=== PATIENT | male | born 1980 | race Caucasian/White ===

== ENCOUNTER 2016-09-11 18:28 | Observation (INO) | payer OTHER ==
--- NOTE | ~2016-09-11 | EKG ---
PATIENT: SEUN MATA UNIT #: [id number] Ventricular Rate: 69 BPM Atrial Rate: 69 BPM P-R Interval: 184 ms QRS Duration: 96 ms Q-T Interval: 426 ms QTC Calculation(Bezet): 456 ms P [place]: 40 degrees Calculated R [place]: -74 degrees Calculated T [place]: 23 degrees Diagnosis Line: Normal sinus rhythm Diagnosis Line: Left axis deviation Diagnosis Line: Abnormal ECG Diagnosis Line: When compared with ECG of 11-APR-2016 20:31, Diagnosis Line: Vent. rate has decreased BY 34 BPM Diagnosis Line: T wave amplitude has decreased in Lateral leads Diagnosis Line: Confirmed by GEE AMOS MD ([id number]) on Diagnosis Line: 09/13/2016 10:23:53 PM INTERPRETING MD: JAY
--- NOTE | ~2016-09-11 | EKG ---
PATIENT: SEUN MATA UNIT #: [id number] Ventricular Rate: 70 BPM Atrial Rate: 70 BPM P-R Interval: 184 ms QRS Duration: 100 ms Q-T Interval: 426 ms QTC Calculation(Bezet): 460 ms P [place]: 66 degrees Calculated R [place]: -62 degrees Calculated T [place]: 29 degrees Diagnosis Line: Normal sinus rhythm Diagnosis Line: Left axis deviation Diagnosis Line: Prolonged QT Diagnosis Line: Abnormal ECG Diagnosis Line: When compared with ECG of 11-SEP-2016 18:45, Diagnosis Line: (unconfirmed) Diagnosis Line: No significant change was found Diagnosis Line: Confirmed by GEE AMOS MD ([id number]) on Diagnosis Line: 09/13/2016 10:37:16 PM INTERPRETING MD: JAY
--- NOTE | ~2016-09-11 | BMI ---
[facility] Nutrition Therapy DATE: 09/12/16 Patient: SEUN LOPEZCKER Physician: LEYLA Address: [address] [place] [address] Room/Bed: [address] [place] [address], Zip: [place] [address] Admit Date: 09/11/16 Date of : [birth year] Height: 5 11 Weight: 428 194.2 HIGH BMI NOTE: DX: 36 Y.O. MALE ADMITTED FOR CHEST PAIN, SYNCOPE EPISODE ANTHROPOMETRICS: 5'11", WT: 350# (159 KG), BMI: 48.8 DIET: CC+HH INTERVENTION: 1. CC+HH DIET RECOMMENDATIONS: 1. CONTINUE CURRENT DIET ORDER ABOVE TO PROMOTE GRADUAL WEIGHT LOSS TOWARDS HEALTHY BMI (19.0-25.0) OR +/-10%IBW RD WILL F/U PER PROTOCOL Respectfully, PAPO VOGEL MS, RD, LD Food and Nutritional Services [facility] cc: client file
--- NOTE | ~2016-09-11 | HP ---
Unit #: [id number] #: [id number] Patient: SEUN MATA [id number] [address] [place], [place] [address] [id number] I MR#: [id number] NAME: SEUN MATA ROOM: 553 Age: 36 Sex: M Admission Date: 09/11/2016 : 1980 Attending Physician: Niko Tabor M.D. Primary Care Physician: Angela Burgos M.D. HISTORY AND PHYSICAL CHIEF COMPLAINT Syncopal episode, chest pain. HISTORY OF PRESENT ILLNESS This is a 36-year-old gentleman, history of diabetes, hypertension, chronic pain syndrome, osteoarthritis, tobacco abuse, morbid obesity. He presented to the emergency room for evaluation of the syncopal episode and chest pain. He said that he was at work at [employer]. He said that he had been having already bad day today. He was working at [employer] and he said that all of a sudden he passed out and since then he had been complaining of some exertional chest pain, also he described chest pain as sharp. He said it radiated to back and also to the neck being also complaining of nausea but no vomiting, no fever, no headache, no cough. PAST MEDICAL HISTORY 1. History of hypertension. 2. Diabetes. 3. Chronic pain syndrome. 4. Osteoarthritis. 5. Morbid obesity. 6. History of nicotine abuse. PAST SURGICAL HISTORY History of scrotal incision and drainage for abscess. ALLERGIES No known drug allergies. HOME MEDICATIONS He does not know the doses, will call the pharmacy and confirm the medications. SOCIAL HISTORY He works at [employer] at this time. He lives with family. He smokes one and one half packs of cigarettes daily. He drinks alcohol, beers. He denies illicit drug use. FAMILY HISTORY Mother's history unknown, father from pancreatic cancer. REVIEW OF SYSTEMS CONSTITUTIONAL: No fever. No chills. CARDIOVASCULAR: Reports chest pain described lower chest stabbing pain radiating to neck and back. Unit #: [id number] #: [id number] Patient: SEUN MATA PULMONARY: No cough. No wheezing. GI: Reports nausea but no vomiting. MUSCULOSKELETAL: Chronic pain. NEURO: Had a syncopal episode today. PHYSICAL EXAMINATION GENERAL: Young man lying in the bed comfortably, not in any distress. She is alert, awake, and oriented x3, comfortable, not in any distress. VITAL SIGNS: Current vitals are the following, temperature 97.5, heart rate 68, respiratory rate 18, and blood pressure 171/100, oxygen is 96% on room air. HEENT EXAMINATION: Pupils equal reactive to light and accommodation. Head: Normocephalic and atraumatic. NECK: Supple. No jugular venous distention. HEART: S1 and S2, regular rate and rhythm. ABDOMEN: Soft, nontender, and nondistended. Bowel sounds are positive. EXTREMITIES: Inspection normal. No cyanosis, no clubbing, and no edema. NEUROLOGIC: No focal neurologic deficit. DIAGNOSTIC STUDIES LABORATORY: Laboratory workup is the following, his troponin is less than 0.05, sodium 140, potassium 4.4, glucose 186, BUN 15, creatinine 0.8, INR 0.9, white count 10, hemoglobin 14, hematocrit 45, platelets 200. IMAGING: Chest x-ray negative. CARDIOVASCULAR: EKG shows normal sinus rhythm. ASSESSMENT/PLAN 1. Chest pain, will admit the patient to rule out acute coronary syndrome, will schedule nuclear stress test. 2. Syncopal episode, will do workup, cardiology to evaluate. 3. History of hypertension. 4. Diabetes, place on sliding scale. 5. Chronic pain syndrome. 6. Osteoarthritis. 7. Tobacco abuse. 8. Morbid obesity. 9. DVT prophylaxis, will place the patient on Lovenox. Dictated by Florecita Schwartz TD: 09/12/2016 12:25 JOB #: [id number] Unit #: [id number] #: [id number] Patient: SEUN MATA HISTORY AND PHYSICAL X X HISTORY AND PHYSICAL
--- NOTE | ~2016-09-11 | CR72 ---
[facility] A Service of [facility] & [facility] RADIOLOGY TEXT RESULTS PATIENT: SEUN MATA LOCATION: [place] [address] : [birth year] UNIT #: [id number] AGE: [address]: Niko Tabor MD SEX: M ORDER DR: [id number] [facility] [address] [facility]. [place], [place] [address] [id number] I MR#: [id number] Acc #: [id number] NAME: SEUN MATA : 1980 SEX: M STUDY DATE/TIME: 09/11/2016 18:37 UNIT: CED ROOM: 67057 STUDY DESCRIPTION: CR Chest Single View Portable Attending Physician: Niko Tabor M.D. Ordering Physician: Jorge Mitchell M.D. Primary Care Physician: Angela Burgos M.D. MEDICAL IMAGING REPORT This report is preliminary unless electronic signature is present EXAM Portable chest HISTORY Chest pain. Congestion and syncope. Chronic and symptoms for 2 years. FINDINGS Mild cardiac enlargement and pulmonary vascularity is normal. No airspace infiltrates or effusions. IMPRESSION No active disease. Mild cardiac enlargement. Dictated by... Easton Regan M.D. THIS IS AN ELECTRONICALLY VERIFIED REPORT Easton Regan M.D. at 09/12/2016 3:35 PM DFL/pcl TD: 09/11/2016 23:56 JOB #: [id number] MEDICAL IMAGING REPORT COPY
--- NOTE | ~2016-09-11 | DS ---
Unit #: [id number] #: [id number] Patient: SEUN MATA [id number] [address] [place], [place] [address] [id number] I MR#: [id number] NAME: SEUN MATA. ROOM: 553 Age: 36 Sex: M Admission Date: 09/11/2016 : 1980 Discharge Date: 09/12/2016 Attending Physician: Niko Tabor M.D. Primary Care Physician: Angela Burgos M.D. DISCHARGE SUMMARY FINAL REPORT SHORT STAY SUMMARY HOSPITAL COURSE This 36-year-old male was admitted to the hospital. Patient was seen by Dr. Mora in cardiac consultation. Patient did not have any recurrence of syncope. Dr. Mora thought that patient's symptoms are suggestive of vasovagal episodes and he suggested a tilt table test on outpatient basis. Patient had a coronary angiogram done in 2014, which was normal with an ejection fraction of 50%. Dr. Mora also recommended that there is no indication of carotid Doppler and 2D echo so those tests were not done. Dr. Mora stated that he would follow up with him in the office for further workup if needed. Today, patient is comfortable. He is not in any acute distress. He wants to go home. PHYSICAL EXAMINATION VITAL SIGNS: Reveal temperature of 97.6, pulse is 64 per minute, respiratory rate is 14 per minute, and blood pressure is 126/65. HEENT: Revealed no conjunctival congestion. Sclerae are nonicteric. NECK: Supple. Trachea is central. RESPIRATORY: Revealed breath sounds equal bilaterally. There are no wheezes or crackles. HEART: Regular rate and rhythm S1 and S2. ABDOMEN: Soft and nontender. Bowel sounds are present in all four quadrants. He is morbidly obese. SKIN: Warm and dry. EXTREMITIES: Trace pedal edema. DIAGNOSTIC STUDIES LABORATORY: Patient's creatinine is 0.8, sodium 140, and potassium is 4.4. Troponin was negative. WBCs 10.9, hemoglobin was 14.8, and platelet count is 200. IMAGING: Chest x-ray did not reveal any active disease. RECOMMENDATIONS ON DISCHARGE Condition is stable. Activities as tolerated. MEDICATIONS 1. Glipizide 10 mg p.o. b.i.d. 2. Robaxin 500 mg p.o. daily p.r.n. Unit #: [id number] #: [id number] Patient: SEUN MATA 3. Lantus 14 units subcu. b.i.d. 4. Lyrica 200 mg p.o. b.i.d. p.r.n. 5. Clonidine 0.1 mg b.i.d. 6. Victoza. 7. Atenolol 25 mg p.o. daily. FOLLOWUP 1. Patient is advised to follow up with primary care physician in one week or earlier if needed. 2. Patient is advised to follow up with Dr. Mora, as recommended, in 6-[address] Mora has recommended to schedule a tilt table test on outpatient basis. Patient was advised to call primary care physician or go to ER if his condition changes. The plan was discussed in detail with patient who showed complete understanding. Dictated by... Florecita Rossi/cameron TD: 09/12/2016 13:58 JOB #: [id number] CC: Mayank/aline Please Delete DISCHARGE SUMMARY X Hernan Ziegler MD X DISCHARGE SUMMARY
--- NOTE | ~2016-09-11 | CO ---
Unit #: [id number] #: [id number] Patient: SEUN MATA [id number] [address] [place], [place] [address] [id number] I MR#: [id number] NAME: SEUN MATA ROOM: 55 Age: 36 Sex: M Admission Date: 09/11/2016 : 1980 Attending Physician: Niko Tabor M.D. Primary Care Physician: Angela Burgos M.D. CONSULTATION REPORT REASON FOR CONSULTATION Syncope and chest pain. HISTORY OF PRESENT ILLNESS This is a 36-year-old white male, who works [employer]. Yesterday, while working he states he had a stressful day. He became hot, diaphoretic, and had pain that he describes as sharp in his lower retrosternal and epigastric area. He states he then passed out. He awakened fully conscious without any symptoms except for low back pain, neck pain, and continuation of his chest pain. His chest pain has been ongoing without relief. He was brought to the emergency room for evaluation, where he was given sublingual nitroglycerin. He was hypertensive with blood pressure of 171/100 mmHg. He has risk factors for ischemic heart disease includes hypertension, diabetes, and nicotine abuse. He had previous cardiac catheterization in 12/2015, where he was found to have angiographically normal coronaries. His troponin has been negative with no acute EKG changes on EKG. PAST MEDICAL HISTORY 1. Cardiac catheterization on 12/28/[address] Mora at [facility] that reveals angiographically normal coronaries, with an ejection fraction of 50%. 2. Hypertension. 3. Diabetes mellitus type 2. 4. Morbid obesity. 5. Chronic pain syndrome. 6. Osteoarthritis. 7. Active smoker. PAST SURGICAL HISTORY I and D of the scrotum. SOCIAL HISTORY The patient works at [employer]. He smokes a half a pack of cigarettes daily since age 9. He denies illicit drug or alcohol use. FAMILY HISTORY Negative for coronary artery disease. ALLERGIES No known drug allergies. HOME MEDICATIONS Glucotrol 10 mg b.i.d., Robaxin 500 mg daily, Lantus 14 units subcu Unit #: [id number] #: [id number] Patient: SEUN MATA b.i.d., Lyrica 200 mg b.i.d., clonidine daily. REVIEW OF SYSTEMS CONSTITUTIONAL: Negative for fever or chills. Reports no weight gain or weight loss. No fatigue. No weakness. HEENT: No headache. No hearing or vision changes, difficulty with swallowing. No dizziness. CARDIOVASCULAR: Has chest pain as described in the HPI. Denies palpitations. No paroxysmal nocturnal dyspnea or orthopnea. Reports syncope with loss of consciousness. RESPIRATORY: Positive for dyspnea. No cough or hemoptysis. GASTROINTESTINAL: No abdominal pain, but reports nausea. No vomiting or diarrhea. EXTREMITIES: Negative for lower extremity edema. PHYSICAL EXAMINATION VITAL SIGNS: Blood pressure 126/65, heart rate 64, temperature 97.6. BMI of 59. GENERAL: This is an obese 36-year-old young white male, who is in no acute distress. NEUROLOGIC: He is awake, alert, and oriented without focal weaknesses. NECK: Trachea is midline. No thyromegaly or lymphadenopathy. No jugular venous distention. HEART: S1 and S2. Heart sounds are normal. No murmurs. No rubs or clicks. Regular rate and rhythm. LUNGS: Diminished breath sounds without rales, rhonchi, or wheezes. ABDOMEN: Soft and nontender with bowel sounds are present. EXTREMITIES: Without leg edema. SKIN: Warm and dry. DIAGNOSTIC STUDIES LABORATORY RESULTS: Glucose 186, BUN 15, creatinine 0.8. Sodium 140, potassium 4.4. CK total 102, MB 2.5, MB index 2.5, troponin is less than 0.05 x2 and less than 0.03 x2. Cholesterol 181, triglycerides 138, LDL 107, HDL 46. White count 10.9, hemoglobin 14.8, hematocrit 45.6, platelet count 200. IMAGING STUDIES: Chest x-ray, no active disease with mild cardiac enlargement. CARDIOVASCULAR STUDIES: Electrocardiogram, normal sinus rhythm with a rate of 70 beats per minute with left anterior fascicular block. Poor R-wave progression and left axis deviation. IMPRESSION 1. Chest pain, musculoskeletal in origin. 2. Syncope, questionable vasovagal. 3. Hypertension. 4. Hyperlipidemia. 5. Nicotine abuse. 6. Morbid obesity. 7. Normal coronaries per cardiac catheterization in 12/2014. PLAN 1. Cardiology was consulted for chest pain and syncope. The patient's chest pain appears to be musculoskeletal in origin. 2. Unable to do stress test, because of body habitus. 3. We will evaluate possible vagal syncope with a tilt-table test as an Unit #: [id number] #: [id number] Patient: SEUN MATA outpatient. 4. I have asked the patient to discontinue nicotine abuse. 5. Follow up with Dr. Mora in 6 to 8 weeks. Thank you for allowing us to assist in this patient's care. Dictated by... Sahara ArteagaPGuadalupe for Florecita Montalvo/yoana TD: 09/12/2016 12:33 JOB #: [id number] CONSULTATION REPORT X Ajay Rivera APRN X CONSULTATION REPORT
--- NOTE | ~2016-09-11 | EKG ---
PATIENT: SEUN MATA UNIT #: [id number] Ventricular Rate: 59 BPM Atrial Rate: 59 BPM P-R Interval: 182 ms QRS Duration: 100 ms Q-T Interval: 428 ms QTC Calculation(Bezet): 423 ms P [place]: 48 degrees Calculated R [place]: -65 degrees Calculated T [place]: 29 degrees Diagnosis Line: Sinus bradycardia Diagnosis Line: Left axis deviation Diagnosis Line: Nonspecific T wave abnormality Diagnosis Line: Abnormal ECG Diagnosis Line: When compared with ECG of 12-SEP-2016 01:49, Diagnosis Line: (unconfirmed) Diagnosis Line: No significant change was found Diagnosis Line: Confirmed by GEE AMOS MD ([id number]) on Diagnosis Line: 09/13/2016 10:39:55 PM INTERPRETING MD: JAY
[~2016-09-11 18:28] MED LIST: ASPIRIN PO; AUGMENTIN PO; BACTRIM DS TABL1 TA2 PO; BACTROBAN22 GM TP; DAKIN S TOP; FLOMAX0.4 M1 PO; GLUCOTROL10 MG PO; IBUPROFEN800 MG PO; INVOKANA100 MG PO; LIPITOR20 MG PO; LOPRESSOR PO; LORTAB 5/500 TA1 TA1 PO; LORTAB 7.5-5001 TAB PO; LOTRIMIN30 GM TOP; METFORMIN PO; NORCO 5/325 TAB1 TAB PO; PERCOCET5/325 PO; PHENERGAN PO; PHENERGAN25 M1 PO; PRINIVIL20 M1 PO; TYLENOL325 M1 PO; [UNRECOGNIZED DRUG - OTHER] TOP
[2016-09-11 18:33] LABS: BASOPHIL% 0.4 % (0-2.5); DIFF IND NO; EOSINOPHIL# 0.2 X10e3 (0-0.7); EOSINOPHIL% 1.9 % (0.0-7.0); HEMATOCRIT 45.6 % (38.0-50.0); HEMOGLOBIN 14.8 gm/dL (13.0-16.0); LYMPHOCYTE# 2.4 X10e3 (1.0-3.5); LYMPHOCYTE% 21.7 % (17.0-45.0); MEAN CELL VOLUME 84.7 FL (83-96); MEAN CORPUSCULAR HEMOGLOBIN 27.6 PG (28-34); MEAN CORPUSCULAR HGB CONC 32.5 g/dL (30-36); MEAN PLATELET VOLUME 9.6 FL (6.5-11.5); MONOCYTE# 0.9 X10e3 (0-1.0); MONOCYTE% 7.8 % (3.0-12.0); NEUTROPHIL# 7.5 X10e3 (1.5-7.1); NEUTROPHIL% 68.2 % (40-75); PLATELET COUNT 200 X10e3 (140-420); RED BLOOD COUNT 5.39 X10e (3.90-5.60); RED CELL DISTRIBUTION WIDTH 14.5 % (11.0-15.5); WHITE BLOOD COUNT 10.9 X10e3 (4.0-10.5)
[2016-09-11 18:45] LABS: INR 0.9; PARTIAL THROMBOPLASTIN TIME 27.1 SECONDS (23.5-31.3); PROTHROMBIN TIME (PATIENT) 9.9 SECONDS (9.6-11.5)
[2016-09-11 19:14] LABS: BLOOD UREA NITROGEN 15 mg/dL (9-23); BUN/CREATININE RATIO 18.75; CALCIUM SERUM 8.7 mg/dL (8.4-10.2); CARBON DIOXIDE 26 mmol/L (22-31); CHLORIDE 106 mmol/L (100-111); CREATININE SERUM 0.8 mg/dL (0.6-1.4); GLOM FILT RATE Estimated ABOVE60 mL/min (>60); GLUCOSE FASTING 186 mg/dL (70-110); POTASSIUM 4.4 mmol/L (3.5-5.1); SODIUM 140 mmol/L (135-145)
[2016-09-11 20:12] LABS: POC - CKMB 1.8 ng/mL (0.0-7.9); POC - TROPONIN <0.05 ng/mL (<=0.05)
[2016-09-11 20:38] LABS: POC - CKMB 1.4 ng/mL (0.0-7.9); POC - TROPONIN <0.05 ng/mL (<=0.05)
[2016-09-11] MEDS ORDERED: GLUCOTROL10 MG PO (22:46)
[2016-09-11] MEDS ORDERED: ROBAXIN500 MG PO (22:46)
[2016-09-11] MEDS ORDERED: LANTUS100 U/ML SUBQ (22:47)
[2016-09-11] MEDS ORDERED: LYRICA200 MG PO (22:48)
[2016-09-11] MEDS ORDERED: CLONIDINE HCL10 GM PO (22:49)
[2016-09-12 03:56] LABS: %MB 2.5 % (0.0-4.0)
[2016-09-12] MEDS ORDERED: CLONIDINE PO (05:45)
[2016-09-12] MEDS ORDERED: ATENOLOL25 MG PO (07:01)
[2016-09-12] MEDS ORDERED: BUPROPION XL300 M1 PO (07:01)
[2016-09-12] MEDS ORDERED: NABUMETONE500 M1 PO (07:02)
[2016-09-12 09:17] LABS: CHOLESTEROL 181 mg/dL (0-200); HDL CHOLESTEROL 46 mg/dL (29-75); LDL CHOLESTEROL 107 mg/dL (-130); LDL/HDL RATIO 2 RATIO (0-4); TRIGLYCERIDES 138 mg/dL (10-160)
[2016-09-12 09:40] LABS: %MB 2.5 % (0.0-4.0); MB 2.5 ng/ml
== END 2016-09-12 12:54 | disposition home or self-care (01) ==
LOC: CED 18:28 → CEDOF 22:50 → C5B 09-12 01:12
PROVIDERS: Emergency Medicine; Internal Medicine
DX: R07.89 Other chest pain (principal); R55 Syncope and collapse; I51.7 Cardiomegaly; I10 Essential (primary) hypertension; E78.5 Hyperlipidemia, unspecified; E11.9 Type 2 diabetes mellitus without complications; Z79.4 Long term (current) use of insulin; G89.4 Chronic pain syndrome; M19.90 Unspecified osteoarthritis, unspecified site; E66.01 Morbid (severe) obesity due to excess calories; Z68.38 Body mass index [BMI] 38.0-38.9, adult; F17.210 Nicotine dependence, cigarettes, uncomplicated; Z79.899 Other long term (current) drug therapy; Z98.890 Other specified postprocedural states
CPT/HCPCS: 36415; 71010; 80048; 80061; 82550; 82553; 82947; 84484; 85025; 85610; 85730; 93005; 96372; 96374; 96375; 96376; 99285; G0378; J1650; J1815; J2270; J2405

== ENCOUNTER → 2016-09-17 | Outpatient (CLI) | payer OTHER ==
[~2016-09-17] MED LIST changes: +ATENOLOL25 MG PO; +BUPROPION XL300 M1 PO; +CLONIDINE HCL10 GM PO; +CLONIDINE PO; +LANTUS100 U/ML SUBQ; +LYRICA200 MG PO; +NABUMETONE500 M1 PO; +ROBAXIN500 MG PO
--- NOTE | ~2016-09-17 | TT ---
Unit #: [id number] #: [id number] Patient: SEUN MATA [id number] [address] [address] [id number] MR#: [id number] NAME: SEUN MATA. : 1980 SEX: M STUDY DATE/TIME: UNIT: [facility] ROOM: STUDY DESCRIPTION: Tilt table test Attending Physician: Danyel Mora M.D. Referring Physician: Danyel Mora M.D. Primary Care Physician: Angela Burgos M.D. CARDIOLOGY REPORT PROCEDURES PERFORMED Tilt table test. PROCEDURES Baseline supine blood pressure is 164/77 with a pulse rate of 72 per minute and respiratory rate of 18. Blood pressure with 70 degree head-up tilt was 170/82 with a heart rate of 70 per minute. At 5 minutes of head-up tilt, the patient complained of tingling in his feet and blurred vision, but the blood pressure was 198/104 mmHg and a heart rate of 66 per minute. Blood pressure remained elevated over the next 20 minutes rising to 202/103 mmHg. At 20 minutes of head-up tilt 1 sublingual nitroglycerin was given, which dropped the blood pressure after 5 minutes to 170/85, and he complained of blurred vision and feeling woozy. Head-up position was maintained. He complained of feeling tired and sleepy, dizzy and having back pain. His blood pressure remained stable with the lowest blood pressure recorded at 30 minutes of head-up tilt at 155/70 mmHg with corresponding heart rate of 72 beats per minute. He continued to complain of weakness and wanted to go to sleep. The patient never had a blackout spell, never showed any arrhythmias. There was appropriate rise in the heart rate up to 75 beats per minute. FINDINGS 1. These findings suggest negative for vasopressive syncope; 2. No arrhythmias; 3. Hypertensive response, probably related to anxiety. Dictated by... Florecita Montalvo/alfonso TD: 09/30/2016 09:37 JOB #: [id number] Unit #: [id number] #: [id number] Patient: SEUN MATA CARDIOLOGY REPORT X Danyel Mora MD CARDIOLOGY REPORT
== END | disposition home or self-care (01) ==
LOC: CECH 09:02
DX: R55 Syncope and collapse (principal)
CPT/HCPCS: 93660

== ENCOUNTER → 2017-04-02 | Outpatient (CLI) | payer OTHER ==
--- NOTE | ~2017-04-02 | US115 ---
[facility] A Service of [facility] & [facility] RADIOLOGY TEXT RESULTS PATIENT: SEUN MATA LOCATION: [facility] : [birth year] UNIT #: [id number] AGE: [address]: KIRILL JOSE MD SEX: M ORDER DR: [id number] [place] [address] [facility]. [place], [place] [address] [id number] MR#: [id number] Acc #: [id number] NAME: SEUN MATA : 1980 SEX: M STUDY DATE/TIME: 04/08/2017 12:34 UNIT: [facility] ROOM: STUDY DESCRIPTION: US Scrotum and Contents Attending Physician: Kirill Jose M.D. Referring Physician: Kirill Jose M.D. Ordering Physician: Kirill Jose M.D. Primary Care Physician: Kirill Jose M.D. MEDICAL IMAGING REPORT This report is preliminary unless electronic signature is present EXAMINATION Testicular ultrasound with Doppler imaging. DATE 04/08/2017 HISTORY Left scrotal mass for 2 years, progressively getting larger and harder. Pain associated with mass. Had surgery to drain fluid. Additional history of diabetes and hypertension. COMPARISON No previous scrotal ultrasound for comparison. FINDINGS This study was originally performed at [facility]. On 04/02/2017. Due to the technical limitations of the study, the patient was asked to return for repeat imaging at the [facility] facility on 04/08/2017. The right testicle measures approximate 2.9 x 2.1 x 4.7 cm. The left testicle measures 4.5 x 3.2 x 2.0 cm. Both testicles demonstrate normal echotexture, and no testicular mass lesion is identified. Both epididymi appear normal. Loculated left scrotal hydrocele along the inferolateral margin of the left testicle measures approximately 2.9 x 1.3 x 3.0 cm. No scrotal varicocele is identified on either side. IMPRESSION 1. Loculated left scrotal hydrocele measuring approximately 3 cm. 2. Normal sonographic appearance of the testicles. Normal flow is [facility] A Service of [facility] & [facility] RADIOLOGY TEXT RESULTS PATIENT: SEUN MATA LOCATION: [facility] #: [id number] : [birth year] UNIT #: [id number] AGE: [address]: KIRILL JOSE MD SEX: M ORDER DR: documented to each testicle. Dictated by... Rosemarie Burr M.D. THIS IS AN ELECTRONICALLY VERIFIED REPORT Rosemarie Burr M.D. at 04/09/2017 10:30 PM RFANCISCO/tianna TD: 04/08/2017 22:21 JOB #: [id number] MEDICAL IMAGING REPORT Page 1 of 1 COPY
== END | disposition home or self-care (01) ==
LOC: CGUS 13:22
DX: N50.89 Other specified disorders of the male genital organs (principal); N43.3 Hydrocele, unspecified
CPT/HCPCS: 76870; 93976